=== PATIENT | female | born 1960 | race Caucasian/White ===

== ENCOUNTER 2020-07-28 10:30 | Outpatient (RCR) | payer OTHER, SELFPAY ==
--- NOTE | 2020-05-13 18:14 | PT.OIE ---
Current Diagnoses Other specified symptoms and signs involving the digestive system and abdomen (05/12/20) Visit Care Team Role Provider Type MARYAM Krueger Primary Care Provider Non-Staff Specialty: Medical Address: [address] [place] [address], [place], [address] Email: Sathya Olsen MD Attending Provider Non-Staff Referring Provider Specialty: Urogynecology Address: [facility], [address] [place], [address] Email: Physical Therapy Initial Evaluation PT-OP-A Visit Information Start: 05/11/20 17:39 Freq: Status: Active Protocol: Document 05/12/20 09:44 [facility] (Rec: 05/12/20 10:13 [facility] [id number]) Out-Patient Physical Therapy Visit Information Visit Information Visit Type Initial Evaluation Visit Start Time 09:45 Visit Stop Time 10:30 Total Visit Minutes 45 Visit Number 1 Evaluation Information Evaluation Date 05/12/20 PT-OP-B Current Condition Start: 05/11/20 17:39 Freq: Status: Active Protocol: Document 05/12/20 09:44 [facility] (Rec: 05/12/20 10:13 [facility] [id number]) Current Condition History of Current Condition Onset Date 2018 Current Complaints post surgical tightness, perineal pain, difficulty fully emptying her bowel History of Current Condition rectocyctele and cystocele repain following hysterectomy due to a uterine prolapse September2019. The prolapse continued after the hysterectomy November 2018 so a year later she had the rectocele and cystocele. After this her bladder was distended and she had difficulty voiding. She was seen in the ER and was given a catheter x 2 weeks at home. Even following this her bladder was not emptying so then she had to start doing self catheterization x 1 week. Then the defication was taking a long time to happen. She was taking stool softner and fiber SHe describes pain in the perinum and sphincter. Her bowel movements now small pieces (she calls them cat size poops) then every 5- 6th day she will have a larger stool. In the morning she can empty her bladder, later in the day she feels like she can fully empty her bladder when she stands she feels she leaks a little. She also has a umbilical hernia that hasn' t been fixed, left sided inguinal hernia repair 1999. hx appendectomy 1989 2 vaginal deliveries, OA in both hips so they get achey. Jami also reports complaints of perineal discomfort and pressure/pain as the day goes on. 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 She has a history of stool taking a long time to move through Treatment Goals Patient/Caregiver Goals pts goals include being able to fully empty her bowels and decreasing perineal pain especially as the day goes on Current Functional Impairments (Reported) Functional Limitations- ADL's irregular bowel movements with difficulty fully emptying Functional Limitations- Mobility/Gait perineal pain and pressure as the day goes on, Jami finds relief by laying down to rest PT-OP-C Subjective Start: 05/11/20 17:39 Freq: Status: Active Protocol: Document 05/12/20 17:36 [facility] (Rec: 05/13/20 17:54 [facility] [id number]) OP-PT Pain Assessment Pain Assessment Grid Paper Pain Assessment Grid Completed Yes Location right hip pain Intensity 1 Scale Used Numeric (0 - 10) Other Pain Alleviating Factors hx of trigger point injections perineum Pain Location Details perineum Intensity 1 Scale Used Numeric (0 - 10) Description Pressure PT-OP-F Manual Assessment Start: 05/11/20 17:39 Freq: Status: Active Protocol: Document 05/12/20 17:36 [facility] (Rec: 05/13/20 17:54 [facility] [id number]) Manual Assessments Soft Tissue Assessment Soft Tissue Mobility Assessment with palpation over the perineum there is scaring and decrased mobility, the posterior wall of the levator ani has restrictions and scar tissue, right side of the levator ani is guarded and restricted PT-OP-I Pelvic Floor Start: 05/11/20 17:39 Freq: Status: Active Protocol: Document 05/12/20 17:36 [facility] (Rec: 05/13/20 17:54 [facility] [id number]) Pelvic Floor Assessment Urine Pelvic Floor Surgery Yes Urinary Symptoms Incomplete Emptying Other Urinary Symptoms slow urinary stream Bowel Bowel Surgery Yes Other Bowel Symptoms difficulty fully eliminating the bowels Pelvic Clock Pelvic Clock 12-3 Atrophy Pelvic Clock 3-6 Atrophy Pelvic Clock 6-9 Guarding,Tenderness,Tightness Pelvic Clock 9-12 Atrophy Pelvic Clock Other with internal assessment I am able to palpate scar tissue tightness and muscle guarding on the right lateral wall of the levator ani as well as the posterior wall Contraction Ability Voluntary Contraction Weak Voluntary Relaxation Weak Manual Muscle Testing Left 1 Manual Muscle Testing Right 2 Manual Muscle Testing Anterior 1 Manual Muscle Testing Posterior 2 PT-OP-Q Treatments Start: 05/13/20 17:36 Freq: Status: Active Protocol: Document 05/13/20 18:13 [facility] (Rec: 05/13/20 18:14 [facility] [id number]) Self-Care/Home Management Treatment Education Patient Education Home Exercise Program Other Education pt given happy baby stretch and educated in pelvic floor facilitation for home PT-OP-T Assessment and Plan Start: 05/11/20 17:39 Freq: Status: Active Protocol: Document 05/12/20 17:36 [facility] (Rec: 05/13/20 17:54 [facility] [id number]) Physical Therapy Assessment Rehab Potential Rehabilitation Potential Excellent Evaluation Complexity Number of Personal Factors/Comorbidities 0 Number of Body Systems Impaired 1-2 Clinical Presentation at Evaluation Stable Impairments Impairments Pain,Soft Tissue Mobility, Strength,Tone Other Impairments decreased ability to defecate Goals Muscle guarding and tightness of the levator ani Impairment muscle guarding and tightness of the levator ani Short Term Goal (STG) Jami is educated in stretches to help relax the pelvic floor and decrease muscle guarding and tightness. STG Duration 4 weeks Pelvic floor weakness Impairment Pelvic floor weakness [facility] Goal (LTG) Improve strength of the pelvic floor to 3/5 MMT or better for improved support of the bladder and retum. LTG Duration 8 weeks decreased ability to defecate Impairment decreased ability to defecate [employer] Goal (LTG) With manual therapy techniques , pelvic floor retraining, stretches, and self massage techniques over the colon Jami is able to have a full bowel movement daily without straining. LTG Duration 8 weeks Assessment Summary Assessment Jami is a 59 year old female referred to PT with pelvic floor hypertrophy post reconstruction. Jami had under gone a hysterectomy in November of 2018. It was after the hysterectomy that she then felt the cystocele and rectocele and had this repaired in September 2019. Jami reports difficulty voiding following surgery and she was catheterized x 2 weeks then needed to self catheterize x 1 week. She still notes a slower urine stream. She also reports difficulty with defecation. She states she will have have small pieces of stool and nallely 5th day will feel like she has a large bowel movement. Jami also reports perineal discomfort towards the end of the day and notes laying down to rest seems to help. She has a history of right sided hip pain and OA, abdominal hernia, left inguinal hernia. With examination today Jami is tight in the posterior wall of the levator ani. In the right side wall I can feel guarding and tightness. She is able to contract all parts of the levator ani however is weak testing 1/5 anterior wall and left lateral manriquez, 2/5 for posterior and right wall. She is tight in the perineum and transverse perineum muscle . I stared Jami today with tactile cues for pelvic floor facilitation and she was given a gentle stretch to begin helping with pelvic tightness. Jami tolerated this well and is a good candidate for PT Physical Therapy Plan Frequency and Duration Frequency of Treatment 1x/Week Duration of Treatment 8 Plan of Care Start Date 05/12/20 Plan of Care End Date 07/07/20 Therapeutic Interventions Therapeutic Interventions Home Exercise Program,Manual Therapy,Neuromuscular Re- education,Patient/Caregiver Education,Self-Care/Home Management,Soft Tissue Mobilization,Therapeutic Exercises Modalities Biofeedback Next Visit Focus/Plan Next Note Type Treatment Note Next Visit Plan Begin EMG biofeedback for the pelvic floor next visit, stretches for pelvic pain, education Jami on Self massage for the large intestine
--- NOTE | 2020-05-13 18:19 | PT.OPPOC ---
Physical, Occupational & Speech Therapy At [facility] Current Diagnoses Other specified symptoms and signs involving the digestive system and abdomen (05/12/20) Visit Care Team Role Provider Type MARYAM Krueger Primary Care Provider Non-Staff Specialty: Medical Address: [address] [place] [address], [phone] Email: Sathya Olsen MD Attending Provider Non-Staff Referring Provider Specialty: Urogynecology Address: [facility], [address], [place], [address] Email: Plan Of Care PT-OP-T Assessment and Plan Start: 05/11/20 17:39 Freq: Status: Active Protocol: Document 05/12/20 17:36 [facility] (Rec: 05/13/20 17:54 [facility] [id number]) Physical Therapy Assessment Rehab Potential Rehabilitation Potential Excellent Evaluation Complexity Number of Personal Factors/Comorbidities 0 Number of Body Systems Impaired 1-2 Clinical Presentation at Evaluation Stable Impairments Impairments Pain,Soft Tissue Mobility, Strength,Tone Other Impairments decreased ability to defecate Goals Muscle guarding and tightness of the levator ani Impairment muscle guarding and tightness of the levator ani Short Term Goal (STG) Jami is educated in stretches to help relax the pelvic floor and decrease muscle guarding and tightness. STG Duration 4 weeks Pelvic floor weakness Impairment Pelvic floor weakness [facility] Goal (LTG) Improve strength of the pelvic floor to 3/5 MMT or better for improved support of the bladder and rectum. LTG Duration 8 weeks decreased ability to defecate Impairment decreased ability to defecate [facility] Goal (LTG) With manual therapy techniques , pelvic floor retraining, stretches, and self massage techniques over the colon Jami is able to have a full bowel movement daily without straining. LTG Duration 8 weeks Assessment Summary Assessment Jami is a 59 year old female referred to PT with pelvic floor hypertrophy post reconstruction. Jmai had under gone a hysterectomy in November of 2018. It was after the hysterectomy that she then felt the cystocele and rectocele and had this repaired in September 2019. Jami reports difficulty voiding following surgery and she was catheterized x 2 weeks then needed to self catheterize x 1 week. She still notes a slower urine stream. She also reports difficulty with defecation. She states she will have have small pieces of stool and every 5th day will feel like she has a large bowel movement. Jami also reports perineum discomfort towards the end of the day and notes laying down to rest seems to help. She has a history of right sided hip pain and OA, abdominal hernia, left inguinal hernia. With examination today Jami is tight in the posterior wall of the levator ani. In the right side wall I can feel guarding and tightness. She is able to contract all parts of the levator ani however is weak testing 1/5 anterior wall and left lateral manriquez, 2/5 for posterior and right wall. She is tight in the perineum and transverse perineal muscle . I stared Jami today with tactile cues for pelvic floor facilitation and she was given a gentle stretch to begin helping with pelvic tightness. Jami tolerated this well and is a good candidate for PT Physical Therapy Plan Frequency and Duration Frequency of Treatment 1x/Week Duration of Treatment 8 Plan of Care Start Date 05/12/20 Plan of Care End Date 07/07/20 Therapeutic Interventions Therapeutic Interventions Home Exercise Program,Manual Therapy,Neuromuscular Re- education,Patient/Caregiver Education,Self-Care/Home Management,Soft Tissue Mobilization,Therapeutic Exercises Modalities Biofeedback Next Visit Focus/Plan Next Note Type Treatment Note Next Visit Plan Begin EMG biofeedback for the pelvic floor next visit, stretches for pelvic pain, education Jami on Self massage for the large intestine Plan of Care Dates Plan of Care Start Date 05/12/20 Plan of Care End Date 07/07/20 Electronically Signed by: Rosemarie Ramirez, PT 05/13/20 4601 Please Sign and Return: I have reviewed this Plan of Care and certify that the skilled therapy services above are required to meet the patient?s needs. Physician Signature Date Printed Name and Credentials Clinical Instructor Signature Printed Name and Credentials
--- NOTE | 2020-05-20 17:22 | PT.OTN ---
Current Diagnoses Other specified symptoms and signs involving the digestive system and abdomen (05/20/20) Physical Therapy Treatment Note PT-OP-A Visit Information Start: 05/11/20 17:39 Freq: Status: Active Protocol: Document 05/20/20 15:38 [facility] (Rec: 05/20/20 16:00 [facility] [id number]) Out-Patient Physical Therapy Visit Information Visit Information Visit Type Treatment Note Visit Start Time 15:20 Visit Stop Time 14:05 Total Visit Minutes 45 Visit Number 2 PT-OP-B Current Condition Start: 05/11/20 17:39 Freq: Status: Active Protocol: Document 05/12/20 09:44 [facility] (Rec: 05/12/20 10:13 [facility] [id number]) Current Condition History of Current Condition Onset Date 2018 Current Complaints post surgical tightness, perineal pain, difficulty fully emptying her bowel History of Current Condition rectocyctele and cystocele repain following hysterectomy due to a uterine prolapse September2019. The prolapse continued after the hysterectomy November 2018 so a year later she had the rectocele and cystocele. After this her bladder was distended and she had difficulty voiding. She was seen in the ER and was given a catheter x 2 weeks at home. Even following this her bladder was not emptying so then she had to start doing self catheterization x 1 week. Then the defication was taking a long time to happen. She was taking stool softner and fiber SHe describes pain in the perinum and sphincter. Her bowel movements now small pieces (she calls them cat size poops) then every 5- 6th day she will have a larger stool. In the morning she can empty her bladder, later in the day she feels like she can fully empty her bladder when she stands she feels she leaks a little. She also has a umbilical hernia that hasn' t been fixed, left sided inguinal hernia repair 1999. hx appendectomy 1988 2 vaginal deliveries, OA in both hips so they get achey. Jami also reports complaints of perineal discomfort and pressure/pain as the day goes on. 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 She has a history of stool taking a long time to move through Treatment Goals Patient/Caregiver Goals pts goals include being able to fully empty her bowels and decreasing perineal pain especially as the day goes on Current Functional Impairments (Reported) Functional Limitations- ADL's irregular bowel movements with difficulty fully emptying Functional Limitations- Mobility/Gait perineal pain and pressure as the day goes on, Jami finds relief by laying down to rest PT-OP-C Subjective Start: 05/11/20 17:39 Freq: Status: Active Protocol: Document 05/20/20 15:35 [facility] (Rec: 05/20/20 15:38 [facility] [id number]) OP-PT Subjective Patient Comments Patient Comments Reports the day after her evaluation she had a long string in her stool it looked like dental floss, she was wondering if it broke lose following her examination. She also felt tight in her anterior hips with her happy baby Patient Reported Progress Same PT-OP-F Manual Assessment Start: 05/11/20 17:39 Freq: Status: Active Protocol: Document 05/12/20 17:36 [facility] (Rec: 05/13/20 17:54 [facility] [id number]) Manual Assessments Soft Tissue Assessment Soft Tissue Mobility Assessment with palpation over the perineum there is scaring and decrased mobility, the posterior wall of the levator ani has restrictions and scar tissue, right side of the levator ani is guarded and restricted PT-OP-I Pelvic Floor Start: 05/11/20 17:39 Freq: Status: Active Protocol: Document 05/12/20 17:36 [facility] (Rec: 05/13/20 17:54 [facility] [id number]) Pelvic Floor Assessment Urine Pelvic Floor Surgery Yes Urinary Symptoms Incomplete Emptying Other Urinary Symptoms slow urinary stream Bowel Bowel Surgery Yes Other Bowel Symptoms difficulty fully eliminating the bowels Pelvic Clock Pelvic Clock 12-3 Atrophy Pelvic Clock 3-6 Atrophy Pelvic Clock 6-9 Guarding,Tenderness,Tightness Pelvic Clock 9-12 Atrophy Pelvic Clock Other with internal assessment I am able to palpate scar tissue tightness and muscle guarding on the right lateral wall of the levator ani as well as the posterior wall Contraction Ability Voluntary Contraction Weak Voluntary Relaxation Weak Manual Muscle Testing Left 1 Manual Muscle Testing Right 2 Manual Muscle Testing Anterior 1 Manual Muscle Testing Posterior 2 PT-OP-Q Treatments Start: 05/13/20 17:36 Freq: Status: Active Protocol: Document 05/20/20 17:13 [facility] (Rec: 05/20/20 17:22 [facility] [id number]) Therapeutic Exercises Supine Exercises TA facilitation Supine Exercise Name TA facilitation Comments also attempted TA faciliation in sidelying which felt better for Jami Pelvic floor long holds Supine Exercise Name Pelvic floor long holds: 10.4 avg and max of 20.4 5.7 resting tone Reps/Minutes 10 sec hold x 10 relax 10 10 reps Comments pt to do 5 sec hold and 10 sec relax for home due to elevated tone happy baby Supine Exercise Name happy baby stretch Side bilateral Comments modified to one hip at a time due to anterior hip pain Manual Therapy Treatment Soft Tissue Mobilization ILU massge Body Location Abdominal massage over the large intestine Mobilization Type Myofascial Release Intensity/Depth Superficial Body Position Hooklying PT-OP-T Assessment and Plan Start: 05/11/20 17:39 Freq: Status: Active Protocol: Document 05/20/20 15:38 [facility] (Rec: 05/20/20 16:00 [facility] [id number]) Physical Therapy Assessment Assessment Summary Assessment I talked to Jami about the dental floss type string she experienced losing. She is not sure if it was rectal or vaginal. Only a evalution was performed but it is possible she had a surgical suture still there that wiggled its way lose. She had no other complaints. Today we started EMG biofeedback for pelvic floor strengthening. Her endurance is limited and the pelvic floor tends to guard following her contractions. I started her with 5 second holds and 10 second relaxation . We also started ILU massage today. SHe notes that she is unable to a have a colonoscopy as her colon was too tight in places to pass the camera through. TA facilitation was initiated and it is difficult for Jami to isolate her TA without obliques tightening Physical Therapy Plan Frequency and Duration Frequency of Treatment 1x/Week Duration of Treatment 8 Plan of Care Start Date 05/12/20 Plan of Care End Date 07/07/20 Therapeutic Interventions Therapeutic Interventions Home Exercise Program,Manual Therapy,Neuromuscular Re- education,Patient/Caregiver Education,Self-Care/Home Management,Soft Tissue Mobilization,Therapeutic Exercises Modalities Biofeedback Next Visit Focus/Plan Next Note Type Treatment Note Next Visit Plan Continue EMG biofeedback, TA awareness, ILU massage, diaphragmatic breathing, hip stretches,
--- NOTE | 2020-05-27 17:36 | PT.OTN ---
Current Diagnoses Other specified symptoms and signs involving the digestive system and abdomen (05/27/20) Physical Therapy Treatment Note PT-OP-A Visit Information Start: 05/11/20 17:39 Freq: Status: Active Protocol: Document 05/27/20 15:23 [facility] (Rec: 05/27/20 15:32 [facility] [id number]) Out-Patient Physical Therapy Visit Information Visit Information Visit Type Treatment Note Visit Start Time 15:20 Visit Stop Time 16:05 Total Visit Minutes 45 Visit Number 3 PT-OP-B Current Condition Start: 05/11/20 17:39 Freq: Status: Active Protocol: Document 05/12/20 09:44 [facility] (Rec: 05/12/20 10:13 [facility] [id number]) Current Condition History of Current Condition Onset Date 2018 Current Complaints post surgical tightness, perineal pain, difficulty fully emptying her bowel History of Current Condition rectocyctele and cystocele repain following hysterectomy due to a uterine prolapse September2019. The prolapse continued after the hysterectomy November 2018 so a year later she had the rectocele and cystocele. After this her bladder was distended and she had difficulty voiding. She was seen in the ER and was given a catheter x 2 weeks at home. Even following this her bladder was not emptying so then she had to start doing self catheterization x 1 week. Then the defication was taking a long time to happen. She was taking stool softner and fiber SHe describes pain in the perinum and sphincter. Her bowel movements now small pieces (she calls them cat size poops) then every 5- 6th day she will have a larger stool. In the morning she can empty her bladder, later in the day she feels like she can fully empty her bladder when she stands she feels she leaks a little. She also has a umbilical hernia that hasn' t been fixed, left sided inguinal hernia repair 1999. hx appendectomy 1988 2 vaginal deliveries, OA in both hips so they get achey. Jami also reports complaints of perineal discomfort and pressure/pain as the day goes on. 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 She has a history of stool taking a long time to move through Treatment Goals Patient/Caregiver Goals pts goals include being able to fully empty her bowels and decreasing perineal pain especially as the day goes on Current Functional Impairments (Reported) Functional Limitations- ADL's irregular bowel movements with difficulty fully emptying Functional Limitations- Mobility/Gait perineal pain and pressure as the day goes on, Jami finds relief by laying down to rest PT-OP-C Subjective Start: 05/11/20 17:39 Freq: Status: Active Protocol: Document 05/27/20 15:23 [facility] (Rec: 05/27/20 15:32 [facility] [id number]) OP-PT Subjective Patient Comments Patient Comments SHe feels the ILU massage has been helping keep things moving. She notes she had more of the S shape stool. PT-OP-F Manual Assessment Start: 05/11/20 17:39 Freq: Status: Active Protocol: Document 05/12/20 17:36 [facility] (Rec: 05/13/20 17:54 [facility] [id number]) Manual Assessments Soft Tissue Assessment Soft Tissue Mobility Assessment with palpation over the perineum there is scaring and decrased mobility, the posterior wall of the levator ani has restrictions and scar tissue, right side of the levator ani is guarded and restricted PT-OP-I Pelvic Floor Start: 05/11/20 17:39 Freq: Status: Active Protocol: Document 05/12/20 17:36 [facility] (Rec: 05/13/20 17:54 [facility] [id number]) Pelvic Floor Assessment Urine Pelvic Floor Surgery Yes Urinary Symptoms Incomplete Emptying Other Urinary Symptoms slow urinary stream Bowel Bowel Surgery Yes Other Bowel Symptoms difficulty fully eliminating the bowels Pelvic Clock Pelvic Clock 12-3 Atrophy Pelvic Clock 3-6 Atrophy Pelvic Clock 6-9 Guarding,Tenderness,Tightness Pelvic Clock 9-12 Atrophy Pelvic Clock Other with internal assessment I am able to palpate scar tissue tightness and muscle guarding on the right lateral wall of the levator ani as well as the posterior wall Contraction Ability Voluntary Contraction Weak Voluntary Relaxation Weak Manual Muscle Testing Left 1 Manual Muscle Testing Right 2 Manual Muscle Testing Anterior 1 Manual Muscle Testing Posterior 2 PT-OP-Q Treatments Start: 05/13/20 17:36 Freq: Status: Active Protocol: Document 05/27/20 16:03 [facility] (Rec: 05/27/20 16:07 [facility] [id number]) Therapeutic Exercises Supine Exercises Pelvic floor long holds Supine Exercise Name Pelvic floor long holds: 10.4 avg and max of 20.4 5.7 resting tone Reps/Minutes avg 3.1 max 7.2 Comments 5 sec holds 10 sec relax: Better resting tone today happy baby Supine Exercise Name happy baby stretch Side bilateral Comments modified to one hip at a time due to anterior hip pain Self-Care/Home Management Treatment Education Patient Education Home Exercise Program Other Education pt educated in use of dilator for self tirgger point massage She was given a size small dilator to assist with self masage PT-OP-T Assessment and Plan Start: 05/11/20 17:39 Freq: Status: Active Protocol: Document 05/27/20 16:03 [facility] (Rec: 05/27/20 17:36 [facility] [id number]) Physical Therapy Assessment Assessment Summary Assessment Pt is doing better with resting tone as it is down to baseline now. This was following masage. She was speeder tender right side but much less tension now as compared to initial examination. The dilator may be really help ful for her. 5 sec holds are still challanging. Physical Therapy Plan Frequency and Duration Frequency of Treatment 1x/Week Duration of Treatment 8 Plan of Care Start Date 05/12/20 Plan of Care End Date 07/07/20 Therapeutic Interventions Therapeutic Interventions Home Exercise Program,Manual Therapy,Neuromuscular Re- education,Patient/Caregiver Education,Self-Care/Home Management,Soft Tissue Mobilization,Therapeutic Exercises Modalities Biofeedback Next Visit Focus/Plan Next Note Type Treatment Note Next Visit Plan assess dilator use, start progressing pelvic floor strength using adductors and hip ER, increase hold time to 10 seconds, introduce quick pelvic floor contractions
--- NOTE | 2020-06-03 17:57 | PT.OTN ---
Current Diagnoses Other specified symptoms and signs involving the digestive system and abdomen (06/03/20) Physical Therapy Treatment Note PT-OP-A Visit Information Start: 05/11/20 17:39 Freq: Status: Active Protocol: Document 06/03/20 15:21 [facility] (Rec: 06/03/20 15:54 [facility] [id number]) Out-Patient Physical Therapy Visit Information Visit Information Visit Type Treatment Note Visit Start Time 15:15 Visit Stop Time 16:00 Total Visit Minutes 45 Visit Number 4 PT-OP-B Current Condition Start: 05/11/20 17:39 Freq: Status: Active Protocol: Document 05/12/20 09:44 [facility] (Rec: 05/12/20 10:13 [facility] [id number]) Current Condition History of Current Condition Onset Date 2018 Current Complaints post surgical tightness, perineal pain, difficulty fully emptying her bowel History of Current Condition rectocyctele and cystocele repain following hysterectomy due to a uterine prolapse September2019. The prolapse continued after the hysterectomy November 2018 so a year later she had the rectocele and cystocele. After this her bladder was distended and she had difficulty voiding. She was seen in the ER and was given a catheter x 2 weeks at home. Even following this her bladder was not emptying so then she had to start doing self catheterization x 1 week. Then the defication was taking a long time to happen. She was taking stool softner and fiber SHe describes pain in the perinum and sphincter. Her bowel movements now small pieces (she calls them cat size poops) then every 5- 6th day she will have a larger stool. In the morning she can empty her bladder, later in the day she feels like she can fully empty her bladder when she stands she feels she leaks a little. She also has a umbilical hernia that hasn' t been fixed, left sided inguinal hernia repair 1999. hx appendectomy 1988 2 vaginal deliveries, OA in both hips so they get achey. Jami also reports complaints of perineal discomfort and pressure/pain as the day goes on. 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 She has a history of stool taking a long time to move through Treatment Goals Patient/Caregiver Goals pts goals include being able to fully empty her bowels and decreasing perineal pain especially as the day goes on Current Functional Impairments (Reported) Functional Limitations- ADL's irregular bowel movements with difficulty fully emptying Functional Limitations- Mobility/Gait perineal pain and pressure as the day goes on, Jami finds relief by laying down to rest PT-OP-C Subjective Start: 05/11/20 17:39 Freq: Status: Active Protocol: Document 06/03/20 15:21 [facility] (Rec: 06/03/20 15:35 [facility] [id number]) OP-PT Subjective Patient Comments Patient Comments the dilator was helpful, she still has some tightening by evening that makes things harder to do. She is still feeling like she is not having a daily bowel movement. She has always had symptoms of this though. Patient Reported Progress Improving PT-OP-F Manual Assessment Start: 05/11/20 17:39 Freq: Status: Active Protocol: Document 05/12/20 17:36 [facility] (Rec: 05/13/20 17:54 [facility] [id number]) Manual Assessments Soft Tissue Assessment Soft Tissue Mobility Assessment with palpation over the perineum there is scaring and decrased mobility, the posterior wall of the levator ani has restrictions and scar tissue, right side of the levator ani is guarded and restricted PT-OP-I Pelvic Floor Start: 05/11/20 17:39 Freq: Status: Active Protocol: Document 05/12/20 17:36 [facility] (Rec: 05/13/20 17:54 [facility] [id number]) Pelvic Floor Assessment Urine Pelvic Floor Surgery Yes Urinary Symptoms Incomplete Emptying Other Urinary Symptoms slow urinary stream Bowel Bowel Surgery Yes Other Bowel Symptoms difficulty fully eliminating the bowels Pelvic Clock Pelvic Clock 12-3 Atrophy Pelvic Clock 3-6 Atrophy Pelvic Clock 6-9 Guarding,Tenderness,Tightness Pelvic Clock 9-12 Atrophy Pelvic Clock Other with internal assessment I am able to palpate scar tissue tightness and muscle guarding on the right lateral wall of the levator ani as well as the posterior wall Contraction Ability Voluntary Contraction Weak Voluntary Relaxation Weak Manual Muscle Testing Left 1 Manual Muscle Testing Right 2 Manual Muscle Testing Anterior 1 Manual Muscle Testing Posterior 2 PT-OP-Q Treatments Start: 05/13/20 17:36 Freq: Status: Active Protocol: Document 06/03/20 15:21 [facility] (Rec: 06/03/20 15:54 [facility] [id number]) Therapeutic Exercises Supine Exercises lower trunk rotation Supine Exercise Name lower trunk rotation Reps/Minutes x 10 reps single knee to chest Supine Exercise Name single knee to chest Pelvic floor long holds Supine Exercise Name Pelvic floor long holds: 10.4 avg and max of 20.4 5.7 resting tone Reps/Minutes 4.2 Comments 10 second hold 10 seconds happy baby Supine Exercise Name happy baby stretch Side bilateral Comments modified to one hip at a time due to anterior hip pain Manual Therapy Treatment Soft Tissue Mobilization transverse perineal Body Location transverse perineal B Mobilization Type Myofascial Release Intensity/Depth Superficial Body Position Hooklying Comments tightness bilaterally MFR levator ani Body Location levator ani right side Mobilization Type Myofascial Release,Sustained Pressure Intensity/Depth Moderate Body Position Supine Comments good tolerance for MFR, the tone is not as tight as it was at time of initial evaluation . Pt was shown how to do self release with dilator and was given a dilator for home. I did not feel the scar tissue as tight today either. She was also shown infor on the intimate laura wand to assist with trigger point release PT-OP-T Assessment and Plan Start: 05/11/20 17:39 Freq: Status: Active Protocol: Document 06/03/20 17:51 [facility] (Rec: 06/03/20 17:57 [facility] [id number]) Physical Therapy Assessment Assessment Summary Assessment Gave Jami information about the squatty potty today to help with bowel movements. We worked on dilator use and she was educated about how to use the dilator for trigger point massage of the right posterior lateral wall of the levator ani. Her average contraction on EMG biofeedback was a 7.4 uv today and her resting tone is now down to baseline. We increased her hold time to 10 seconds today. She is making good progress Physical Therapy Plan Frequency and Duration Frequency of Treatment 1x/Week Duration of Treatment 8 Plan of Care Start Date 05/12/20 Plan of Care End Date 07/07/20 Therapeutic Interventions Therapeutic Interventions Home Exercise Program,Manual Therapy,Neuromuscular Re- education,Patient/Caregiver Education,Self-Care/Home Management,Soft Tissue Mobilization,Therapeutic Exercises Modalities Biofeedback Next Visit Focus/Plan Next Note Type Treatment Note Next Visit Plan assess dilator use, start progressing pelvic floor strength using adductors and hip ER, increase hold time to 10 seconds, introduce quick pelvic floor contractions
--- NOTE | 2020-06-10 17:53 | PT.OTN ---
Current Diagnoses Other specified symptoms and signs involving the digestive system and abdomen (06/10/20) Physical Therapy Treatment Note PT-OP-A Visit Information Start: 05/11/20 17:39 Freq: Status: Active Protocol: Document 06/10/20 15:15 [facility] (Rec: 06/10/20 15:15 [facility] [id number]) Out-Patient Physical Therapy Visit Information Visit Information Visit Type Treatment Note Visit Start Time 15:15 Visit Stop Time 16:00 Total Visit Minutes 45 Visit Number 5 PT-OP-B Current Condition Start: 05/11/20 17:39 Freq: Status: Active Protocol: Document 05/12/20 09:44 [facility] (Rec: 05/12/20 10:13 [facility] [id number]) Current Condition History of Current Condition Onset Date 2018 Current Complaints post surgical tightness, perineal pain, difficulty fully emptying her bowel History of Current Condition rectocyctele and cystocele repain following hysterectomy due to a uterine prolapse September2019. The prolapse continued after the hysterectomy November 2018 so a year later she had the rectocele and cystocele. After this her bladder was distended and she had difficulty voiding. She was seen in the ER and was given a catheter x 2 weeks at home. Even following this her bladder was not emptying so then she had to start doing self catheterization x 1 week. Then the defication was taking a long time to happen. She was taking stool softner and fiber SHe describes pain in the perinum and sphincter. Her bowel movements now small pieces (she calls them cat size poops) then every 5- 6th day she will have a larger stool. In the morning she can empty her bladder, later in the day she feels like she can fully empty her bladder when she stands she feels she leaks a little. She also has a umbilical hernia that hasn' t been fixed, left sided inguinal hernia repair 1999. hx appendectomy 1988 2 vaginal deliveries, OA in both hips so they get achey. Jami also reports complaints of perineal discomfort and pressure/pain as the day goes on. 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 She has a history of stool taking a long time to move through Treatment Goals Patient/Caregiver Goals pts goals include being able to fully empty her bowels and decreasing perineal pain especially as the day goes on Current Functional Impairments (Reported) Functional Limitations- ADL's irregular bowel movements with difficulty fully emptying Functional Limitations- Mobility/Gait perineal pain and pressure as the day goes on, Jami finds relief by laying down to rest PT-OP-C Subjective Start: 05/11/20 17:39 Freq: Status: Active Protocol: Document 06/10/20 15:15 [facility] (Rec: 06/10/20 15:30 [facility] [id number]) OP-PT Subjective Patient Comments Patient Comments She used the dilator as a tool for pressure point. She She hasn't had a bowel movement since this past weekent. She reports she hasn't been as sore at the end of the day in the perineum. Patient Reported Progress Improving PT-OP-F Manual Assessment Start: 05/11/20 17:39 Freq: Status: Active Protocol: Document 05/12/20 17:36 [facility] (Rec: 05/13/20 17:54 [facility] [id number]) Manual Assessments Soft Tissue Assessment Soft Tissue Mobility Assessment with palpation over the perineum there is scaring and decrased mobility, the posterior wall of the levator ani has restrictions and scar tissue, right side of the levator ani is guarded and restricted PT-OP-I Pelvic Floor Start: 05/11/20 17:39 Freq: Status: Active Protocol: Document 05/12/20 17:36 [facility] (Rec: 05/13/20 17:54 [facility] [id number]) Pelvic Floor Assessment Urine Pelvic Floor Surgery Yes Urinary Symptoms Incomplete Emptying Other Urinary Symptoms slow urinary stream Bowel Bowel Surgery Yes Other Bowel Symptoms difficulty fully eliminating the bowels Pelvic Clock Pelvic Clock 12-3 Atrophy Pelvic Clock 3-6 Atrophy Pelvic Clock 6-9 Guarding,Tenderness,Tightness Pelvic Clock 9-12 Atrophy Pelvic Clock Other with internal assessment I am able to palpate scar tissue tightness and muscle guarding on the right lateral wall of the levator ani as well as the posterior wall Contraction Ability Voluntary Contraction Weak Voluntary Relaxation Weak Manual Muscle Testing Left 1 Manual Muscle Testing Right 2 Manual Muscle Testing Anterior 1 Manual Muscle Testing Posterior 2 PT-OP-Q Treatments Start: 05/13/20 17:36 Freq: Status: Active Protocol: Document 06/10/20 15:57 [facility] (Rec: 06/10/20 16:01 [facility] [id number]) Therapeutic Exercises Supine Exercises quick flicks Reps/Minutes 2 sec on 2 sec off Pelvic floor long holds Reps/Minutes 4.7 average with max of 10.4 Comments 10 second hold 10 seconds PT-OP-T Assessment and Plan Start: 05/11/20 17:39 Freq: Status: Active Protocol: Document 06/10/20 15:15 [facility] (Rec: 06/10/20 16:03 [facility] [id number]) Physical Therapy Plan Next Visit Focus/Plan Next Note Type Treatment Note Next Visit Plan work on transverse abdominal stabilization in the next few visits.
--- NOTE | 2020-06-17 17:54 | PT.OTN ---
Current Diagnoses Other specified symptoms and signs involving the digestive system and abdomen (06/17/20) Physical Therapy Treatment Note PT-OP-A Visit Information Start: 05/11/20 17:39 Freq: Status: Active Protocol: Document 06/17/20 15:42 [facility] (Rec: 06/17/20 15:42 [facility] [id number]) Out-Patient Physical Therapy Visit Information Visit Information Visit Type Treatment Note Visit Start Time 15:25 Visit Stop Time 16:00 Total Visit Minutes 35 Visit Number 6 PT-OP-B Current Condition Start: 05/11/20 17:39 Freq: Status: Active Protocol: Document 05/12/20 09:44 [facility] (Rec: 05/12/20 10:13 [facility] [id number]) Current Condition History of Current Condition Onset Date 2018 Current Complaints post surgical tightness, perineal pain, difficulty fully emptying her bowel History of Current Condition rectocyctele and cystocele repain following hysterectomy due to a uterine prolapse September2019. The prolapse continued after the hysterectomy November 2018 so a year later she had the rectocele and cystocele. After this her bladder was distended and she had difficulty voiding. She was seen in the ER and was given a catheter x 2 weeks at home. Even following this her bladder was not emptying so then she had to start doing self catheterization x 1 week. Then the defication was taking a long time to happen. She was taking stool softner and fiber SHe describes pain in the perinum and sphincter. Her bowel movements now small pieces (she calls them cat size poops) then every 5- 6th day she will have a larger stool. In the morning she can empty her bladder, later in the day she feels like she can fully empty her bladder when she stands she feels she leaks a little. She also has a umbilical hernia that hasn' t been fixed, left sided inguinal hernia repair 1999. hx appendectomy 1988 2 vaginal deliveries, OA in both hips so they get achey. Jami also reports complaints of perineal discomfort and pressure/pain as the day goes on. 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 She has a history of stool taking a long time to move through Treatment Goals Patient/Caregiver Goals pts goals include being able to fully empty her bowels and decreasing perineal pain especially as the day goes on Current Functional Impairments (Reported) Functional Limitations- ADL's irregular bowel movements with difficulty fully emptying Functional Limitations- Mobility/Gait perineal pain and pressure as the day goes on, Jami finds relief by laying down to rest PT-OP-C Subjective Start: 05/11/20 17:39 Freq: Status: Active Protocol: Document 06/17/20 15:29 [facility] (Rec: 06/17/20 15:41 [facility] [id number]) OP-PT Subjective Patient Comments Patient Comments She has finally had bowel movements this week. A little bit every day and then finally a S shape bowel movement. She had gone 4 days without a bowel movement. Less pressure on her perineum. She does meet with her doctor by phone on the . Patient Reported Progress Improving PT-OP-F Manual Assessment Start: 05/11/20 17:39 Freq: Status: Active Protocol: Document 05/12/20 17:36 [facility] (Rec: 05/13/20 17:54 [facility] [id number]) Manual Assessments Soft Tissue Assessment Soft Tissue Mobility Assessment with palpation over the perineum there is scaring and decrased mobility, the posterior wall of the levator ani has restrictions and scar tissue, right side of the levator ani is guarded and restricted PT-OP-I Pelvic Floor Start: 05/11/20 17:39 Freq: Status: Active Protocol: Document 05/12/20 17:36 [facility] (Rec: 05/13/20 17:54 [facility] [id number]) Pelvic Floor Assessment Urine Pelvic Floor Surgery Yes Urinary Symptoms Incomplete Emptying Other Urinary Symptoms slow urinary stream Bowel Bowel Surgery Yes Other Bowel Symptoms difficulty fully eliminating the bowels Pelvic Clock Pelvic Clock 12-3 Atrophy Pelvic Clock 3-6 Atrophy Pelvic Clock 6-9 Guarding,Tenderness,Tightness Pelvic Clock 9-12 Atrophy Pelvic Clock Other with internal assessment I am able to palpate scar tissue tightness and muscle guarding on the right lateral wall of the levator ani as well as the posterior wall Contraction Ability Voluntary Contraction Weak Voluntary Relaxation Weak Manual Muscle Testing Left 1 Manual Muscle Testing Right 2 Manual Muscle Testing Anterior 1 Manual Muscle Testing Posterior 2 PT-OP-Q Treatments Start: 05/13/20 17:36 Freq: Status: Active Protocol: Document 06/17/20 15:42 [facility] (Rec: 06/17/20 16:15 [facility] [id number]) Therapeutic Exercises Supine Exercises quick flicks Supine Exercise Name quick flicks Reps/Minutes 2 sec on 2 sec off TA facilitation Supine Exercise Name TA facilitation Comments also attempted TA faciliation in sidelying which felt better for Jami Pelvic floor long holds Reps/Minutes 4.8 average with 13.8 uv Comments resting tone was initially 5.7 uv so this is good improvement Other Exercises sola pose Other Exercise Name pelvic floor stretch in sola pose. Self-Care/Home Management Treatment Education Patient Education Home Exercise Program Other Education medical records were reviewed with the patient from her colonoscopy to try and see where her colon blockage is stemming from PT-OP-T Assessment and Plan Start: 05/11/20 17:39 Freq: Status: Active Protocol: Document 06/17/20 15:42 [facility] (Rec: 06/17/20 16:15 [facility] [id number]) Physical Therapy Assessment Assessment Summary Assessment Jami was able to relax to baseline today but it took her a few minutes to fully relax her pelvic floor. I did add in sola pose to help with pelvic floor relaxation. We also started working on TA facilitation in supine Physical Therapy Plan Frequency and Duration Frequency of Treatment 1x/Week Duration of Treatment 8 Plan of Care Start Date 05/12/20 Plan of Care End Date 07/07/20 Therapeutic Interventions Therapeutic Interventions Home Exercise Program,Manual Therapy,Neuromuscular Re- education,Patient/Caregiver Education,Self-Care/Home Management,Soft Tissue Mobilization,Therapeutic Exercises Modalities Biofeedback Next Visit Focus/Plan Next Note Type Treatment Note Next Visit Plan work on transverse abdominal stabilization in the next few visits.
--- NOTE | 2020-07-01 17:25 | PT.OTN ---
Current Diagnoses Other specified symptoms and signs involving the digestive system and abdomen (07/01/20) Physical Therapy Treatment Note PT-OP-A Visit Information Start: 05/11/20 17:39 Freq: Status: Active Protocol: Document 07/01/20 09:45 [facility] (Rec: 07/01/20 10:25 [facility] [id number]) Out-Patient Physical Therapy Visit Information Visit Information Visit Type Treatment Note Visit Start Time 09:45 Visit Stop Time 10:30 Total Visit Minutes 45 Visit Number 7 PT-OP-B Current Condition Start: 05/11/20 17:39 Freq: Status: Active Protocol: Document 05/12/20 09:44 [facility] (Rec: 05/12/20 10:13 [facility] [id number]) Current Condition History of Current Condition Onset Date 2018 Current Complaints post surgical tightness, perineal pain, difficulty fully emptying her bowel History of Current Condition rectocyctele and cystocele repain following hysterectomy due to a uterine prolapse September2019. The prolapse continued after the hysterectomy November 2018 so a year later she had the rectocele and cystocele. After this her bladder was distended and she had difficulty voiding. She was seen in the ER and was given a catheter x 2 weeks at home. Even following this her bladder was not emptying so then she had to start doing self catheterization x 1 week. Then the defication was taking a long time to happen. She was taking stool softner and fiber SHe describes pain in the perinum and sphincter. Her bowel movements now small pieces (she calls them cat size poops) then every 5- 6th day she will have a larger stool. In the morning she can empty her bladder, later in the day she feels like she can fully empty her bladder when she stands she feels she leaks a little. She also has a umbilical hernia that hasn' t been fixed, left sided inguinal hernia repair 1999. hx appendectomy 1988 2 vaginal deliveries, OA in both hips so they get achey. Jami also reports complaints of perineal discomfort and pressure/pain as the day goes on. 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 She has a history of stool taking a long time to move through Treatment Goals Patient/Caregiver Goals pts goals include being able to fully empty her bowels and decreasing perineal pain especially as the day goes on Current Functional Impairments (Reported) Functional Limitations- ADL's irregular bowel movements with difficulty fully emptying Functional Limitations- Mobility/Gait perineal pain and pressure as the day goes on, Jami finds relief by laying down to rest PT-OP-C Subjective Start: 05/11/20 17:39 Freq: Status: Active Protocol: Document 07/01/20 09:45 [facility] (Rec: 07/01/20 10:01 [facility] [id number]) OP-PT Subjective Patient Comments Patient Comments pt reports she is taking one teaspoon a day of metamusal and she feels like maybe that is working a little bit. Bowel movement every 3-4 days with a little between. She is also taking spriolenactone for acne and has been taking this for 6 months. She is wondering if this is causing more constipation. Patient Reported Progress Same PT-OP-F Manual Assessment Start: 05/11/20 17:39 Freq: Status: Active Protocol: Document 05/12/20 17:36 [facility] (Rec: 05/13/20 17:54 [facility] [id number]) Manual Assessments Soft Tissue Assessment Soft Tissue Mobility Assessment with palpation over the perineum there is scaring and decrased mobility, the posterior wall of the levator ani has restrictions and scar tissue, right side of the levator ani is guarded and restricted PT-OP-I Pelvic Floor Start: 05/11/20 17:39 Freq: Status: Active Protocol: Document 05/12/20 17:36 [facility] (Rec: 05/13/20 17:54 [facility] [id number]) Pelvic Floor Assessment Urine Pelvic Floor Surgery Yes Urinary Symptoms Incomplete Emptying Other Urinary Symptoms slow urinary stream Bowel Bowel Surgery Yes Other Bowel Symptoms difficulty fully eliminating the bowels Pelvic Clock Pelvic Clock 12-3 Atrophy Pelvic Clock 3-6 Atrophy Pelvic Clock 6-9 Guarding,Tenderness,Tightness Pelvic Clock 9-12 Atrophy Pelvic Clock Other with internal assessment I am able to palpate scar tissue tightness and muscle guarding on the right lateral wall of the levator ani as well as the posterior wall Contraction Ability Voluntary Contraction Weak Voluntary Relaxation Weak Manual Muscle Testing Left 1 Manual Muscle Testing Right 2 Manual Muscle Testing Anterior 1 Manual Muscle Testing Posterior 2 PT-OP-Q Treatments Start: 05/13/20 17:36 Freq: Status: Active Protocol: Document 07/01/20 09:45 [facility] (Rec: 07/01/20 10:31 [facility] [id number]) Therapeutic Exercises Supine Exercises quick flicks Supine Exercise Name quick flicks Reps/Minutes 2 sec on 2 sec off single knee to chest Supine Exercise Name single knee to chest TA facilitation Supine Exercise Name TA facilitation Comments also attempted TA faciliation in sidelying which felt better for Jami Pelvic floor long holds Reps/Minutes 4.8 average with 13.8 uv Comments resting tone was initially 5.7 uv so this is good improvement Other Exercises TA stabilization with marches and bend knee fall outs Reps/Minutes 10 reps each sola pose Other Exercise Name pelvic floor stretch in sola pose. Manual Therapy Treatment Soft Tissue Mobilization fascial release over the sigmoid colon Body Position Hooklying ILU massge Body Location Abdominal massage over the large intestine Mobilization Type Myofascial Release Intensity/Depth Superficial Body Position Hooklying PT-OP-T Assessment and Plan Start: 05/11/20 17:39 Freq: Status: Active Protocol: Document 07/01/20 09:45 [facility] (Rec: 07/01/20 10:31 [facility] [id number]) Physical Therapy Assessment Assessment Summary Assessment I added in TA stabilization for Jami today as she has poor control of her lower abdominal wall and tends to bulge out the abdomen. She did well with TA isolations with marches and bent knee fall outs. She would benefit from further stabilization Physical Therapy Plan Frequency and Duration Frequency of Treatment 1x/Week Duration of Treatment 8 Plan of Care Start Date 05/12/20 Plan of Care End Date 07/07/20 Therapeutic Interventions Therapeutic Interventions Home Exercise Program,Manual Therapy,Neuromuscular Re- education,Patient/Caregiver Education,Self-Care/Home Management,Soft Tissue Mobilization,Therapeutic Exercises Modalities Biofeedback Next Visit Focus/Plan Next Note Type Treatment Note Next Visit Plan progress abdominal stabilization and work on gentle lumbar ROM to provide assist to bowel movements
--- NOTE | 2020-07-06 17:44 | PT.OTN ---
Current Diagnoses Other specified symptoms and signs involving the digestive system and abdomen (07/06/20) Physical Therapy Treatment Note PT-OP-A Visit Information Start: 05/11/20 17:39 Freq: Status: Active Protocol: Document 07/06/20 17:17 [facility] (Rec: 07/06/20 17:44 [facility] [id number]) Out-Patient Physical Therapy Visit Information Visit Information Visit Type Treatment Note Visit Start Time 15:30 Visit Stop Time 16:00 Total Visit Minutes 30 Visit Number 8 PT-OP-B Current Condition Start: 05/11/20 17:39 Freq: Status: Active Protocol: Document 05/12/20 09:44 [facility] (Rec: 05/12/20 10:13 [facility] [id number]) Current Condition History of Current Condition Onset Date 2018 Current Complaints post surgical tightness, perineal pain, difficulty fully emptying her bowel History of Current Condition rectocyctele and cystocele repain following hysterectomy due to a uterine prolapse September2019. The prolapse continued after the hysterectomy November 2018 so a year later she had the rectocele and cystocele. After this her bladder was distended and she had difficulty voiding. She was seen in the ER and was given a catheter x 2 weeks at home. Even following this her bladder was not emptying so then she had to start doing self catheterization x 1 week. Then the defication was taking a long time to happen. She was taking stool softner and fiber SHe describes pain in the perinum and sphincter. Her bowel movements now small pieces (she calls them cat size poops) then every 5- 6th day she will have a larger stool. In the morning she can empty her bladder, later in the day she feels like she can fully empty her bladder when she stands she feels she leaks a little. She also has a umbilical hernia that hasn' t been fixed, left sided inguinal hernia repair 1999. hx appendectomy 1988 2 vaginal deliveries, OA in both hips so they get achey. Jami also reports complaints of perineal discomfort and pressure/pain as the day goes on. 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 She has a history of stool taking a long time to move through Treatment Goals Patient/Caregiver Goals pts goals include being able to fully empty her bowels and decreasing perineal pain especially as the day goes on Current Functional Impairments (Reported) Functional Limitations- ADL's irregular bowel movements with difficulty fully emptying Functional Limitations- Mobility/Gait perineal pain and pressure as the day goes on, Jami finds relief by laying down to rest PT-OP-C Subjective Start: 05/11/20 17:39 Freq: Status: Active Protocol: Document 07/06/20 17:17 [facility] (Rec: 07/06/20 17:44 [facility] [id number]) OP-PT Subjective Patient Comments Patient Comments Jami reports she had her covid vaccine and she is a little achey today in her low back and in the right side of her abdominal wall. She was able to have a good bowel movement today and hasn't been experiencing the small ball pieces of stool Patient Reported Progress Improving PT-OP-F Manual Assessment Start: 05/11/20 17:39 Freq: Status: Active Protocol: Document 05/12/20 17:36 [facility] (Rec: 05/13/20 17:54 [facility] [id number]) Manual Assessments Soft Tissue Assessment Soft Tissue Mobility Assessment with palpation over the perineum there is scaring and decrased mobility, the posterior wall of the levator ani has restrictions and scar tissue, right side of the levator ani is guarded and restricted PT-OP-I Pelvic Floor Start: 05/11/20 17:39 Freq: Status: Active Protocol: Document 05/12/20 17:36 [facility] (Rec: 05/13/20 17:54 [facility] [id number]) Pelvic Floor Assessment Urine Pelvic Floor Surgery Yes Urinary Symptoms Incomplete Emptying Other Urinary Symptoms slow urinary stream Bowel Bowel Surgery Yes Other Bowel Symptoms difficulty fully eliminating the bowels Pelvic Clock Pelvic Clock 12-3 Atrophy Pelvic Clock 3-6 Atrophy Pelvic Clock 6-9 Guarding,Tenderness,Tightness Pelvic Clock 9-12 Atrophy Pelvic Clock Other with internal assessment I am able to palpate scar tissue tightness and muscle guarding on the right lateral wall of the levator ani as well as the posterior wall Contraction Ability Voluntary Contraction Weak Voluntary Relaxation Weak Manual Muscle Testing Left 1 Manual Muscle Testing Right 2 Manual Muscle Testing Anterior 1 Manual Muscle Testing Posterior 2 PT-OP-Q Treatments Start: 05/13/20 17:36 Freq: Status: Active Protocol: Document 07/06/20 17:17 [facility] (Rec: 07/06/20 17:44 [facility] [id number]) Manual Therapy Treatment Soft Tissue Mobilization fascial release over the sigmoid colon Body Position Hooklying ILU massge Body Location Abdominal massage over the large intestine Mobilization Type Myofascial Release Intensity/Depth Superficial Body Position Hooklying PT-OP-T Assessment and Plan Start: 05/11/20 17:39 Freq: Status: Active Protocol: Document 07/06/20 17:17 [facility] (Rec: 07/06/20 17:44 [facility] [id number]) Physical Therapy Assessment Goals Muscle guarding and tightness of the levator ani Impairment muscle guarding and tightness of the levator ani Short Term Goal (STG) Jami is educated in stretches to help relax the pelvic floor and decrease muscle guarding and tightness. GOAL MET STG Duration 4 weeks Pelvic floor weakness Impairment Pelvic floor weakness Fdc Goal (LTG) Improve strength of the pelvic floor to 3/5 MMT or better for improved support of the bladder and retum. Good progress decreased ability to defecate Impairment decreased ability to defecate Lifter Driver Goal (LTG) With manual therapy techniques , pelvic floor retraining, stretches, and self massage techniques over the colon Jami is able to have a full bowel movement daily without straining. Some progress LTG Duration 8 weeks Assessment Summary Assessment Overall Jami has been making good progress. She has been working on both pelvic relaxation as well as strengthening for support. She notes overall decreased complaints of pain and pressure at the perineum. She reports her bowel movements have been better recently. She is still awaiting a second colonoscopy using water as her last was not successful due to her colon having many twits. We held off on abdominal and pelvic floor stabilization today due to Jami feeling achey after the covid 19 second vaccine yesterday. We will resume next visit. Physical Therapy Plan Frequency and Duration Frequency of Treatment 1x/Week Duration of Treatment 8 Plan of Care Start Date 07/06/20 Plan of Care End Date 08/31/20 Therapeutic Interventions Therapeutic Interventions Home Exercise Program,Manual Therapy,Neuromuscular Re- education,Patient/Caregiver Education,Self-Care/Home Management,Soft Tissue Mobilization,Therapeutic Exercises Modalities Biofeedback Next Visit Focus/Plan Next Note Type Treatment Note Next Visit Plan progress abdominal stabilization and work on gentle lumbar ROM to provide assist to bowel movements
--- NOTE | 2020-07-06 17:47 | PT.OPPOC ---
Physical, Occupational & Speech Therapy At [facility] Current Diagnoses Other specified symptoms and signs involving the digestive system and abdomen (07/06/20) Visit Care Team Role Provider Type MARYAM Krueger Primary Care Provider Non-Staff Specialty: Medical Address: [address], [place], [address] Email: Sathya Olsen MD Attending Provider Non-Staff Referring Provider Specialty: Urogynecology Address: [facility], [address] [place], [address] Email: Plan Of Care PT-OP-T Assessment and Plan Start: 05/11/20 17:39 Freq: Status: Active Protocol: Document 07/06/20 17:17 [facility] (Rec: 07/06/20 17:44 [facility] [id number]) Physical Therapy Assessment Goals Muscle guarding and tightness of the levator ani Impairment muscle guarding and tightness of the levator ani Short Term Goal (STG) Jami is educated in stretches to help relax the pelvic floor and decrease muscle guarding and tightness. GOAL MET STG Duration 4 weeks Pelvic floor weakness Impairment Pelvic floor weakness Jail Goal (LTG) Improve strength of the pelvic floor to 3/5 MMT or better for improved support of the bladder and rectum. Good progress decreased ability to defecate Impairment decreased ability to defecate Jail Goal (LTG) With manual therapy techniques , pelvic floor retraining, stretches, and self massage techniques over the colon Jami is able to have a full bowel movement daily without straining. Some progress LTG Duration 8 weeks Assessment Summary Assessment Overall Jami has been making good progress. She has been working on both pelvic relaxation as well as strengthening for support. She notes overall decreased complaints of pain and pressure at the perineum. She reports her bowel movements have been better recently. She is still awaiting a second colonoscopy using water as her last was not successful due to her colon having many twits. We held off on abdominal and pelvic floor stabilization today due to Jami feeling achy after the covid 19 second vaccine yesterday. We will resume next visit. Physical Therapy Plan Frequency and Duration Frequency of Treatment 1x/Week Duration of Treatment 8 Plan of Care Start Date 07/06/20 Plan of Care End Date 08/31/20 Therapeutic Interventions Therapeutic Interventions Home Exercise Program,Manual Therapy,Neuromuscular Re- education,Patient/Caregiver Education,Self-Care/Home Management,Soft Tissue Mobilization,Therapeutic Exercises Modalities Biofeedback Next Visit Focus/Plan Next Note Type Treatment Note Next Visit Plan progress abdominal stabilization and work on gentle lumbar ROM to provide assist to bowel movements Plan of Care Dates Plan of Care Start Date 07/06/20 Plan of Care End Date 08/31/20 Electronically Signed by: Rosemarie Ramirez, PT 07/06/20 [id number] Please Sign and Return: I have reviewed this Plan of Care and certify that the skilled therapy services above are required to meet the patient?s needs. Physician Signature Date Printed Name and Credentials Clinical Instructor Signature Printed Name and Credentials
--- NOTE | 2020-07-14 11:44 | PT.OTN ---
Current Diagnoses Other specified symptoms and signs involving the digestive system and abdomen (07/13/20) Physical Therapy Treatment Note PT-OP-A Visit Information Start: 05/11/20 17:39 Freq: Status: Active Protocol: Document 07/13/20 15:17 [facility] (Rec: 07/13/20 15:40 [facility] [id number]) Out-Patient Physical Therapy Visit Information Visit Information Visit Type Treatment Note Visit Start Time 15:15 Visit Stop Time 16:00 Total Visit Minutes 45 Visit Number 9 PT-OP-B Current Condition Start: 05/11/20 17:39 Freq: Status: Active Protocol: Document 05/12/20 09:44 [facility] (Rec: 05/12/20 10:13 [facility] [id number]) Current Condition History of Current Condition Onset Date 2018 Current Complaints post surgical tightness, perineal pain, difficulty fully emptying her bowel History of Current Condition rectocyctele and cystocele repair following hysterectomy due to a uterine prolapse September2019. The prolapse continued after the hysterectomy November 2018 so a year later she had the rectocele and cystocele. After this her bladder was distended and she had difficulty voiding. She was seen in the ER and was given a catheter x 2 weeks at home. Even following this her bladder was not emptying so then she had to start doing self catheterization x 1 week. Then the defecation was taking a long time to happen. She was taking stool softener and fiber She describes pain in the perineum and sphincter. Her bowel movements now small pieces (she calls them cat size poops) then every 5- 6th day she will have a larger stool. In the morning she can empty her bladder, later in the day she feels like she can fully empty her bladder when she stands she feels she leaks a little. She also has a umbilical hernia that hasn't been fixed, left sided inguinal hernia repair 1999. hx appendectomy 1988 2 vaginal deliveries, OA in both hips so they get achey. Jami also reports complaints of perineal discomfort and pressure/pain as the day goes on. 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 She has a history of stool taking a long time to move through Treatment Goals Patient/Caregiver Goals pts goals include being able to fully empty her bowels and decreasing perineal pain especially as the day goes on Current Functional Impairments (Reported) Functional Limitations- ADL's irregular bowel movements with difficulty fully emptying Functional Limitations- Mobility/Gait perineal pain and pressure as the day goes on, Jami finds relief by laying down to rest PT-OP-C Subjective Start: 05/11/20 17:39 Freq: Status: Active Protocol: Document 07/13/20 15:17 [facility] (Rec: 07/13/20 15:22 [facility] [id number]) OP-PT Subjective Patient Comments Patient Comments pt notes she is still having sporadic bowel movements. It is not as bad as it was however it is still happening. She does feel some pressure on the right side of her colon . She will have a consult with Dr. Escamilla August 02. Patient Reported Progress Improving PT-OP-F Manual Assessment Start: 05/11/20 17:39 Freq: Status: Active Protocol: Document 05/12/20 17:36 [facility] (Rec: 05/13/20 17:54 [facility] [id number]) Manual Assessments Soft Tissue Assessment Soft Tissue Mobility Assessment with palpation over the perineum there is scaring and mobility, the posterior wall of the levator ani has restrictions and scar tissue, right side of the levator ani is guarded and restricted PT-OP-I Pelvic Floor Start: 05/11/20 17:39 Freq: Status: Active Protocol: Document 05/12/20 17:36 [facility] (Rec: 05/13/20 17:54 [facility] [id number]) Pelvic Floor Assessment Urine Pelvic Floor Surgery Yes Urinary Symptoms Incomplete Emptying Other Urinary Symptoms slow urinary stream Bowel Bowel Surgery Yes Other Bowel Symptoms difficulty fully eliminating the bowels Pelvic Clock Pelvic Clock 12-3 Atrophy Pelvic Clock 3-6 Atrophy Pelvic Clock 6-9 Guarding,Tenderness,Tightness Pelvic Clock 9-12 Atrophy Pelvic Clock Other with internal assessment I am able to palpate scar tissue tightness and muscle guarding on the right lateral wall of the levator ani as well as the posterior wall Contraction Ability Voluntary Contraction Weak Voluntary Relaxation Weak Manual Muscle Testing Left 1 Manual Muscle Testing Right 2 Manual Muscle Testing Anterior 1 Manual Muscle Testing Posterior 2 PT-OP-Q Treatments Start: 05/13/20 17:36 Freq: Status: Active Protocol: Document 07/13/20 15:17 [facility] (Rec: 07/13/20 15:40 [facility] [id number]) Therapeutic Exercises Supine Exercises TA with marches Reps/Minutes 10-20 reps lower trunk rotation Supine Exercise Name lower trunk rotation Reps/Minutes x 10 reps TA facilitation Supine Exercise Name TA facilitation Comments also attempted TA faciliation in sidelying which felt better for Jami Pelvic floor long holds Reps/Minutes 4.8 average with 13.8 uv Comments resting tone was initially 5.7 uv so this is good improvement Other Exercises TA in quadruped with op arm opp leg Reps/Minutes x 10 each sola pose Other Exercise Name pelvic floor stretch in sola pose. PT-OP-T Assessment and Plan Start: 05/11/20 17:39 Freq: Status: Active Protocol: Document 07/13/20 15:17 [facility] (Rec: 07/13/20 15:53 [facility] [id number]) Physical Therapy Assessment Goals Muscle guarding and tightness of the levator ani Impairment muscle guarding and tightness of the levator ani Short Term Goal (STG) Jami is educated in stretches to help relax the pelvic floor and decrease muscle guarding and tightness. GOAL MET STG Duration 4 weeks Pelvic floor weakness Impairment Pelvic floor weakness Veterinary Toxicologist Goal (LTG) Improve strength of the pelvic floor to 3/5 MMT or better for improved support of the bladder and retum. Good progress decreased ability to defecate Impairment decreased ability to defecate [facility] Goal (LTG) With manual therapy techniques , pelvic floor retraining, stretches, and self massage techniques over the colon Jami is able to have a full bowel movement daily without straining. Some progress Assessment Summary Assessment resting tone of the pelvic floor is at baseline now with good ability to relax her pelvic floor. Average strength 6.7 uv and max is 11. 3 uv. I am working on lower abdominal stabilization and increasing pelvic floor strength at this point as her resting tone of the pelvic floor is much improved. She is no longer hypertonic in her pelvic floor. Further colonoscopy work up may be beneficial as she notes she has a easier time emptying her bowels but is not having a daily bowel movement and feels she gets backed up. Physical Therapy Plan Frequency and Duration Frequency of Treatment 1x/Week Duration of Treatment 8 Plan of Care Start Date 07/06/20 Plan of Care End Date 08/31/20 Next Visit Focus/Plan Next Note Type Treatment Note Next Visit Plan progress abdominal stabilization and work on gentle lumbar ROM to provide assist to bowel movements
--- NOTE | 2020-07-20 18:11 | PT.OTN ---
Current Diagnoses Other specified symptoms and signs involving the digestive system and abdomen (07/20/20) Physical Therapy Treatment Note PT-OP-A Visit Information Start: 05/11/20 17:39 Freq: Status: Active Protocol: Document 07/20/20 09:00 [facility] (Rec: 07/20/20 09:05 [facility] [id number]) Out-Patient Physical Therapy Visit Information Visit Information Visit Type Treatment Note Visit Start Time 09:00 Visit Stop Time 09:45 Total Visit Minutes 45 Visit Number 10 PT-OP-B Current Condition Start: 05/11/20 17:39 Freq: Status: Active Protocol: Document 05/12/20 09:44 [facility] (Rec: 05/12/20 10:13 [facility] [id number]) Current Condition History of Current Condition Onset Date 2018 Current Complaints post surgical tightness, perineal pain, difficulty fully emptying her bowel History of Current Condition rectocyctele and cystocele repain following hysterectomy due to a uterine prolapse September2019. The prolapse continued after the hysterectomy November 2018 so a year later she had the rectocele and cystocele. After this her bladder was distended and she had difficulty voiding. She was seen in the ER and was given a catheter x 2 weeks at home. Even following this her bladder was not emptying so then she had to start doing self catheterization x 1 week. Then the defication was taking a long time to happen. She was taking stool softner and fiber SHe describes pain in the perinum and sphincter. Her bowel movements now small pieces (she calls them cat size poops) then every 5- 6th day she will have a larger stool. In the morning she can empty her bladder, later in the day she feels like she can fully empty her bladder when she stands she feels she leaks a little. She also has a umbilical hernia that hasn' t been fixed, left sided inguinal hernia repair 1999. hx appendectomy 1988 2 vaginal deliveries, OA in both hips so they get achey. Jami also reports complaints of perineal discomfort and pressure/pain as the day goes on. 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 She has a history of stool taking a long time to move through Treatment Goals Patient/Caregiver Goals pts goals include being able to fully empty her bowels and decreasing perineal pain especially as the day goes on Current Functional Impairments (Reported) Functional Limitations- ADL's irregular bowel movements with difficulty fully emptying Functional Limitations- Mobility/Gait perineal pain and pressure as the day goes on, Jami finds relief by laying down to rest PT-OP-C Subjective Start: 05/11/20 17:39 Freq: Status: Active Protocol: Document 07/20/20 09:00 [facility] (Rec: 07/20/20 09:05 [facility] [id number]) OP-PT Subjective Patient Comments Patient Comments Jami brings in her MD info Teodoro Edouard MD She is still having the back up of stool, it got worse with the increased metamusil. She got really bloated and couldn 't go. PT-OP-F Manual Assessment Start: 05/11/20 17:39 Freq: Status: Active Protocol: Document 05/12/20 17:36 [facility] (Rec: 05/13/20 17:54 [facility] [id number]) Manual Assessments Soft Tissue Assessment Soft Tissue Mobility Assessment with palpation over the perineum there is scaring and decrased mobility, the posterior wall of the levator ani has restrictions and scar tissue, right side of the levator ani is guarded and restricted PT-OP-I Pelvic Floor Start: 05/11/20 17:39 Freq: Status: Active Protocol: Document 05/12/20 17:36 [facility] (Rec: 05/13/20 17:54 [facility] [id number]) Pelvic Floor Assessment Urine Pelvic Floor Surgery Yes Urinary Symptoms Incomplete Emptying Other Urinary Symptoms slow urinary stream Bowel Bowel Surgery Yes Other Bowel Symptoms difficulty fully eliminating the bowels Pelvic Clock Pelvic Clock 12-3 Atrophy Pelvic Clock 3-6 Atrophy Pelvic Clock 6-9 Guarding,Tenderness,Tightness Pelvic Clock 9-12 Atrophy Pelvic Clock Other with internal assessment I am able to palpate scar tissue tightness and muscle guarding on the right lateral wall of the levator ani as well as the posterior wall Contraction Ability Voluntary Contraction Weak Voluntary Relaxation Weak Manual Muscle Testing Left 1 Manual Muscle Testing Right 2 Manual Muscle Testing Anterior 1 Manual Muscle Testing Posterior 2 PT-OP-Q Treatments Start: 05/13/20 17:36 Freq: Status: Active Protocol: Document 07/20/20 09:00 [facility] (Rec: 07/20/20 09:24 [facility] [id number]) Therapeutic Exercises Supine Exercises TA with marches Reps/Minutes 10-20 reps Comments cues to reset the TA before each july single knee to chest Reps/Minutes 2 reps 30 sec each leg happy baby Reps/Minutes hold 1-2 reps Other Exercises cat cow and sidebends Reps/Minutes x 10 each TA in quadruped with op arm opp leg Reps/Minutes x 10 each sola pose Other Exercise Name pelvic floor stretch in sola pose. PT-OP-T Assessment and Plan Start: 05/11/20 17:39 Freq: Status: Active Protocol: Document 07/20/20 09:00 [facility] (Rec: 07/20/20 13:51 [facility] [id number]) Physical Therapy Assessment Assessment Summary Assessment We worked today on the lower abdominal muscles and stretches for the pelvic floor . I showed Jami a standing TA stabilization exercise as she notes it is not always easy to get onto the floor. She was sore on the right ascending colon today and some what on the transverse colon. Not sure if it was because she hasn't had a bowel movement in the last few days and she was more backed up. Physical Therapy Plan Frequency and Duration Frequency of Treatment 1x/Week Duration of Treatment 8 Plan of Care Start Date 07/06/20 Plan of Care End Date 08/31/20 Therapeutic Interventions Therapeutic Interventions Home Exercise Program,Manual Therapy,Neuromuscular Re- education,Patient/Caregiver Education,Self-Care/Home Management,Soft Tissue Mobilization,Therapeutic Exercises Modalities Biofeedback Next Visit Focus/Plan Next Note Type Treatment Note Next Visit Plan continue to progress abdominal stabilization and lumbar ROm
--- NOTE | 2020-07-27 12:37 | PT.OPPN ---
Current Diagnoses Other specified symptoms and signs involving the digestive system and abdomen (07/20/20) Physical Therapy Progress Note PT-OP-A Visit Information Start: 05/11/20 17:39 Freq: Status: Active Protocol: Document 07/20/20 09:00 [facility] (Rec: 07/20/20 09:05 [facility] [id number]) Out-Patient Physical Therapy Visit Information Visit Information Visit Type Treatment Note Visit Start Time 09:00 Visit Stop Time 09:45 Total Visit Minutes 45 Visit Number 10 PT-OP-B Current Condition Start: 05/11/20 17:39 Freq: Status: Active Protocol: Document 05/12/20 09:44 [facility] (Rec: 05/12/20 10:13 [facility] [id number]) Current Condition History of Current Condition Onset Date 2018 Current Complaints post surgical tightness, perineal pain, difficulty fully emptying her bowel History of Current Condition rectocele and cystocele repair following hysterectomy due to a uterine prolapse September2019. The prolapse continued after the hysterectomy November 2018 so a year later she had the rectocele and cystocele. After this her bladder was distended and she had difficulty voiding. She was seen in the ER and was given a catheter x 2 weeks at home. Even following this her bladder was not emptying so then she had to start doing self catheterization x 1 week. Then the defecation was taking a long time to happen. She was taking stool softener and fiber She describes pain in the perineum and sphincter. Her bowel movements now small pieces (she calls them cat size poops) then every 5- 6th day she will have a larger stool. In the morning she can empty her bladder, later in the day she feels like she can fully empty her bladder when she stands she feels she leaks a little. She also has a umbilical hernia that hasn' t been fixed, left sided inguinal hernia repair 1999. hx appendectomy 1988 2 vaginal deliveries, OA in both hips so they get achy. Jami also reports complaints of perineal discomfort and pressure/pain as the day goes on. 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 She has a history of stool taking a long time to move through Treatment Goals Patient/Caregiver Goals pts goals include being able to fully empty her bowels and decreasing perineal pain especially as the day goes on Current Functional Impairments (Reported) Functional Limitations- ADL's irregular bowel movements with difficulty fully emptying Functional Limitations- Mobility/Gait perineal pain and pressure as the day goes on, Jami finds relief by laying down to rest PT-OP-C Subjective Start: 05/11/20 17:39 Freq: Status: Active Protocol: Document 07/20/20 09:00 [facility] (Rec: 07/20/20 09:05 [facility] [id number]) OP-PT Subjective Patient Comments Patient Comments Jami brings in her MD info Teodoro Edouard MD She is still having the back up of stool, it got worse with the increased metamusil. She got really bloated and couldn 't go. PT-OP-F Manual Assessment Start: 05/11/20 17:39 Freq: Status: Active Protocol: Document 05/12/20 17:36 [facility] (Rec: 05/13/20 17:54 [facility] [id number]) Manual Assessments Soft Tissue Assessment Soft Tissue Mobility Assessment with palpation over the perineum there is scaring and decreased mobility, the posterior wall of the levator ani has restrictions and scar tissue, right side of the levator ani is guarded and restricted PT-OP-I Pelvic Floor Start: 05/11/20 17:39 Freq: Status: Active Protocol: Document 05/12/20 17:36 [facility] (Rec: 05/13/20 17:54 [facility] [id number]) Pelvic Floor Assessment Urine Pelvic Floor Surgery Yes Urinary Symptoms Incomplete Emptying Other Urinary Symptoms slow urinary stream Bowel Bowel Surgery Yes Other Bowel Symptoms difficulty fully eliminating the bowels Pelvic Clock Pelvic Clock 12-3 Atrophy Pelvic Clock 3-6 Atrophy Pelvic Clock 6-9 Guarding,Tenderness,Tightness Pelvic Clock 9-12 Atrophy Pelvic Clock Other with internal assessment I am able to palpate scar tissue tightness and muscle guarding on the right lateral wall of the levator ani as well as the posterior wall Contraction Ability Voluntary Contraction Weak Voluntary Relaxation Weak Manual Muscle Testing Left 1 Manual Muscle Testing Right 2 Manual Muscle Testing Anterior 1 Manual Muscle Testing Posterior 2 PT-OP-T Assessment and Plan Start: 05/11/20 17:39 Freq: Status: Active Protocol: Document 07/27/20 12:34 [facility] (Rec: 07/27/20 12:37 [facility] [id number]) Physical Therapy Assessment Goals Muscle guarding and tightness of the levator ani Impairment muscle guarding and tightness of the levator ani Short Term Goal (STG) Jami is educated in stretches to help relax the pelvic floor and decrease muscle guarding and tightness. GOAL MET STG Duration 4 weeks Pelvic floor weakness Impairment Pelvic floor weakness [employer] Operations Intelligence Officer Goal (LTG) Improve strength of the pelvic floor to 3/5 MMT or better for improved support of the bladder and rectum. Good progress decreased ability to defecate Impairment decreased ability to defecate [employer] Operations Intelligence Officer Goal (LTG) With manual therapy techniques , pelvic floor retraining, stretches, and self massage techniques over the colon Jami is able to have a full bowel movement daily without straining. Some progress but Jami still with go 4-5 days before having a large bowel movement. With her ability to relax the pelvic floor now I don't feel this is due to tightness in the pelvic floor at this time.
--- NOTE | 2020-07-28 11:10 | PT.OTN ---
Current Diagnoses Other specified symptoms and signs involving the digestive system and abdomen (07/28/20) Physical Therapy Treatment Note PT-OP-A Visit Information Start: 05/11/20 17:39 Freq: Status: Active Protocol: Document 07/28/20 10:29 [facility] (Rec: 07/28/20 11:10 [facility] [id number]) Out-Patient Physical Therapy Visit Information Visit Information Visit Type Treatment Note Visit Start Time 10:30 Visit Stop Time 11:08 Total Visit Minutes 38 Visit Number 11 PT-OP-B Current Condition Start: 05/11/20 17:39 Freq: Status: Active Protocol: Document 05/12/20 09:44 [facility] (Rec: 05/12/20 10:13 [facility] [id number]) Current Condition History of Current Condition Onset Date 2018 Current Complaints post surgical tightness, perineal pain, difficulty fully emptying her bowel History of Current Condition rectocyctele and cystocele repain following hysterectomy due to a uterine prolapse September2019. The prolapse continued after the hysterectomy November 2018 so a year later she had the rectocele and cystocele. After this her bladder was distended and she had difficulty voiding. She was seen in the ER and was given a catheter x 2 weeks at home. Even following this her bladder was not emptying so then she had to start doing self catheterization x 1 week. Then the defication was taking a long time to happen. She was taking stool softner and fiber SHe describes pain in the perinum and sphincter. Her bowel movements now small pieces (she calls them cat size poops) then every 5- 6th day she will have a larger stool. In the morning she can empty her bladder, later in the day she feels like she can fully empty her bladder when she stands she feels she leaks a little. She also has a umbilical hernia that hasn' t been fixed, left sided inguinal hernia repair 1999. hx appendectomy 1988 2 vaginal deliveries, OA in both hips so they get achey. Jami also reports complaints of perineal discomfort and pressure/pain as the day goes on. 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 She has a history of stool taking a long time to move through Treatment Goals Patient/Caregiver Goals pts goals include being able to fully empty her bowels and decreasing perineal pain especially as the day goes on Current Functional Impairments (Reported) Functional Limitations- ADL's irregular bowel movements with difficulty fully emptying Functional Limitations- Mobility/Gait perineal pain and pressure as the day goes on, Jami finds relief by laying down to rest PT-OP-C Subjective Start: 05/11/20 17:39 Freq: Status: Active Protocol: Document 07/28/20 10:29 [facility] (Rec: 07/28/20 11:10 [facility] [id number]) OP-PT Subjective Patient Comments Patient Comments pt notes after last visit she had a large bowel movement, she is trying the psyllium husk. She can feel the fullness on the right side of her colon. Has MD appt on 08/02 PT-OP-F Manual Assessment Start: 05/11/20 17:39 Freq: Status: Active Protocol: Document 05/12/20 17:36 [facility] (Rec: 05/13/20 17:54 [facility] [id number]) Manual Assessments Soft Tissue Assessment Soft Tissue Mobility Assessment with palpation over the perineum there is scaring and decrased mobility, the posterior wall of the levator ani has restrictions and scar tissue, right side of the levator ani is guarded and restricted PT-OP-I Pelvic Floor Start: 05/11/20 17:39 Freq: Status: Active Protocol: Document 05/12/20 17:36 [facility] (Rec: 05/13/20 17:54 [facility] [id number]) Pelvic Floor Assessment Urine Pelvic Floor Surgery Yes Urinary Symptoms Incomplete Emptying Other Urinary Symptoms slow urinary stream Bowel Bowel Surgery Yes Other Bowel Symptoms difficulty fully eliminating the bowels Pelvic Clock Pelvic Clock 12-3 Atrophy Pelvic Clock 3-6 Atrophy Pelvic Clock 6-9 Guarding,Tenderness,Tightness Pelvic Clock 9-12 Atrophy Pelvic Clock Other with internal assessment I am able to palpate scar tissue tightness and muscle guarding on the right lateral wall of the levator ani as well as the posterior wall Contraction Ability Voluntary Contraction Weak Voluntary Relaxation Weak Manual Muscle Testing Left 1 Manual Muscle Testing Right 2 Manual Muscle Testing Anterior 1 Manual Muscle Testing Posterior 2 PT-OP-Q Treatments Start: 05/13/20 17:36 Freq: Status: Active Protocol: Document 07/28/20 10:29 [facility] (Rec: 07/28/20 11:10 [facility] [id number]) Therapeutic Exercises Supine Exercises TA with marches Reps/Minutes 10-20 reps Comments cues to reset the TA before each july single knee to chest Reps/Minutes 2 reps 30 sec each leg TA facilitation Reps/Minutes x 10 Comments with pelvic tilt happy baby Reps/Minutes hold 1-2 reps Standing Exercises standing pelvic tilt against the wall Reps/Minutes x 10 reps PT-OP-T Assessment and Plan Start: 05/11/20 17:39 Freq: Status: Active Protocol: Document 07/28/20 10:29 [facility] (Rec: 07/28/20 11:10 [facility] [id number]) Physical Therapy Assessment Assessment Summary Assessment Pt to try castor oil over her intestines at night with castor oil pack to help stimulate bowel movement. She is doing better with abdominal muscle contraction Physical Therapy Plan Frequency and Duration Frequency of Treatment 1x/Week Duration of Treatment 8 Plan of Care Start Date 07/06/20 Plan of Care End Date 08/31/20 Therapeutic Interventions Therapeutic Interventions Home Exercise Program,Manual Therapy,Neuromuscular Re- education,Patient/Caregiver Education,Self-Care/Home Management,Soft Tissue Mobilization,Therapeutic Exercises Modalities Biofeedback Next Visit Focus/Plan Next Note Type Treatment Note Next Visit Plan will see pt after her MD visit . Continue to progress abdominal stabilization and lumbar ROm
--- NOTE | 2020-08-18 09:53 | PT.OPDS ---
Current Diagnoses Other specified symptoms and signs involving the digestive system and abdomen (07/28/20) Visit Care Team Role Provider Type MARYAM Krueger Primary Care Provider Non-Staff Specialty: Medical Address: [address] [facility], [place], [address] Email: Sathya Olsen MD Attending Provider Non-Staff Referring Provider Specialty: Urogynecology Address: [facility], [address] [place], [address] Email: Visit Number Visit Number 11 Discharge Summary PT-OP-B Current Condition Start: 05/11/20 17:39 Freq: Status: Active Protocol: Document 05/12/20 09:44 [facility] (Rec: 05/12/20 10:13 [facility] [id number]) Current Condition History of Current Condition Onset Date 2018 Current Complaints post surgical tightness, perineal pain, difficulty fully emptying her bowel History of Current Condition rectocyctele and cystocele repain following hysterectomy due to a uterine prolapse September2019. The prolapse continued after the hysterectomy November 2018 so a year later she had the rectocele and cystocele. After this her bladder was distended and she had difficulty voiding. She was seen in the ER and was given a catheter x 2 weeks at home. Even following this her bladder was not emptying so then she had to start doing self catheterization x 1 week. Then the defication was taking a long time to happen. She was taking stool softner and fiber SHe describes pain in the perinum and sphincter. Her bowel movements now small pieces (she calls them cat size poops) then every 5- 6th day she will have a larger stool. In the morning she can empty her bladder, later in the day she feels like she can fully empty her bladder when she stands she feels she leaks a little. She also has a umbilical hernia that hasn' t been fixed, left sided inguinal hernia repair 1999. hx appendectomy 1988 2 vaginal deliveries, OA in both hips so they get achey. Jami also reports complaints of perineal discomfort and pressure/pain as the day goes on. 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 She has a history of stool taking a long time to move through Treatment Goals Patient/Caregiver Goals pts goals include being able to fully empty her bowels and decreasing perineal pain especially as the day goes on Current Functional Impairments (Reported) Functional Limitations- ADL's irregular bowel movements with difficulty fully emptying Functional Limitations- Mobility/Gait perineal pain and pressure as the day goes on, Jami finds relief by laying down to rest PT-OP-C Subjective Start: 05/11/20 17:39 Freq: Status: Active Protocol: Document 07/28/20 10:29 [facility] (Rec: 07/28/20 11:10 [facility] [id number]) OP-PT Subjective Patient Comments Patient Comments pt notes after last visit she had a large bowel movement, she is trying the psyllium husk. She can feel the fullness on the right side of her colon. Has MD appt on 08/02 PT-OP-F Manual Assessment Start: 05/11/20 17:39 Freq: Status: Active Protocol: Document 05/12/20 17:36 [facility] (Rec: 05/13/20 17:54 [facility] [id number]) Manual Assessments Soft Tissue Assessment Soft Tissue Mobility Assessment with palpation over the perineum there is scaring and decrased mobility, the posterior wall of the levator ani has restrictions and scar tissue, right side of the levator ani is guarded and restricted PT-OP-I Pelvic Floor Start: 05/11/20 17:39 Freq: Status: Active Protocol: Document 05/12/20 17:36 [facility] (Rec: 05/13/20 17:54 [facility] [id number]) Pelvic Floor Assessment Urine Pelvic Floor Surgery Yes Urinary Symptoms Incomplete Emptying Other Urinary Symptoms slow urinary stream Bowel Bowel Surgery Yes Other Bowel Symptoms difficulty fully eliminating the bowels Pelvic Clock Pelvic Clock 12-3 Atrophy Pelvic Clock 3-6 Atrophy Pelvic Clock 6-9 Guarding,Tenderness,Tightness Pelvic Clock 9-12 Atrophy Pelvic Clock Other with internal assessment I am able to palpate scar tissue tightness and muscle guarding on the right lateral wall of the levator ani as well as the posterior wall Contraction Ability Voluntary Contraction Weak Voluntary Relaxation Weak Manual Muscle Testing Left 1 Manual Muscle Testing Right 2 Manual Muscle Testing Anterior 1 Manual Muscle Testing Posterior 2 PT-OP-T Assessment and Plan Start: 05/11/20 17:39 Freq: Status: Active Protocol: Document 08/18/20 09:46 [facility] (Rec: 08/18/20 09:52 [facility] [id number]) Physical Therapy Assessment Goals Muscle guarding and tightness of the levator ani Impairment muscle guarding and tightness of the levator ani Short Term Goal (STG) Jami is educated in stretches to help relax the pelvic floor and decrease muscle guarding and tightness. GOAL MET STG Duration 4 weeks Pelvic floor weakness Impairment Pelvic floor weakness Intermediate Goal (LTG) Improve strength of the pelvic floor to 3/5 MMT or better for improved support of the bladder and rectum. Good progress decreased ability to defecate Impairment decreased ability to defecate [employer] Operator Goal (LTG) With manual therapy techniques , pelvic floor retraining, stretches, and self massage techniques over the colon Jami is able to have a full bowel movement daily without straining. Some progress but Jami still with go 4-5 days before having a large bowel movement. With her ability to relax the pelvic floor now I dont feel this is due to tightness in the pelvic floor at this time. Assessment Summary Assessment Jami placed a call into me this week letting me know that she went back to work in [employer] and will have to hold off on her PT at this time. She would like to be discharged due to her schedule. 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
== END 2020-08-23 12:13 | disposition home or self-care (01) ==
LOC: PHYS 10:30
PROVIDERS: PCP Nurse Practitioner; Referring Provider Obstetrics & Gynecology; Visit Provider Obstetrics & Gynecology
DX: R19.8 Other specified symptoms and signs involving the digestive system and abdomen (principal)
CPT/HCPCS: 97110; 97140; 97161; 97535